=== PATIENT | male | born 1935 | race Caucasian/White ===

== ENCOUNTER 2019-09-04 10:10 | Emergency (ER) | payer MEDICARE ==
[~2019-09-04] VITALS: Ht 185.4 cm; Wt 80.0 kg
[~2019-09-04 10:10] MED LIST: HYDR-4353 PO
[2019-09-04] MEDS ORDERED: bacitracin 15gm ointment TP ONE (10:35)
[2019-09-04 11:56] VITALS: BP 136/67
== END 2019-09-04 11:58 | disposition home or self-care (01) ==
LOC: ER 10:11
DX: S51.802A Unspecified open wound of left forearm, initial encounter (principal); E78.00 Pure hypercholesterolemia, unspecified; Z72.89 Other problems related to lifestyle; Z79.899 Other long term (current) drug therapy; W18.30XA Fall on same level, unspecified, initial encounter; Y93.89 Activity, other specified; Y92.330 Ice skating rink (indoor) (outdoor) as the place of occurrence of the external cause; Y99.8 Other external cause status
CPT/HCPCS: 72128; 99284; 99285

== ENCOUNTER 2020-03-20 12:53 | Emergency (ER) | payer MEDICARE ==
[~2020-03-20] VITALS: Ht 185.4 cm; Wt 80.1 kg
[2020-03-20 13:44] VITALS: BP 146/68
== END 2020-03-20 15:30 | disposition home or self-care (01) ==
LOC: ER 12:53
DX: K59.00 Constipation, unspecified (principal); R14.0 Abdominal distension (gaseous); E78.00 Pure hypercholesterolemia, unspecified; Z72.89 Other problems related to lifestyle; Z79.899 Other long term (current) drug therapy; Z98.890 Other specified postprocedural states
CPT/HCPCS: 74018; 99283